=== PATIENT | female | born 1945 | race Two or more races ===

== ENCOUNTER → 2018-06-29 | Outpatient (CLI) | payer MEDICARE ==
[2018-06-29 11:38] LABS: BASO % 0.3 % (0.0-1.0); EOS # 0.1 10^3/uL (0.0-0.50); EOS % 0.8 % (0.0-3.0); HEMATOCRIT 33.4 % (36.0-47.0); HEMOGLOBIN 10.6 g/dl (12.0-15.5); LYMPH % 15.5 % (24.0-44.0); MEAN CORPUSCULAR HEMOGLOBIN 25.1 pg (27.0-33.0); MEAN CORPUSCULAR HGB CONC 31.7 g/dl (32.0-36.5); MONO # 0.7 10^3/uL (0.0-0.8); MONO % 10.8 % (0.0-5.0); NEUTROPHILS # 4.6 10^3/uL (1.8-7.7); NEUTROPHILS % 72.3 % (36.0-66.0); PLATELET COUNT, AUTOMATED 273 10^3/uL (150-450); RED BLOOD COUNT 4.23 10^6/uL (4.00-5.40); WHITE BLOOD COUNT 6.4 10^3/uL (4.0-10.0)
--- NOTE | 2018-06-29 13:11 | REP ---
Lumbar spine five views: There are no comparisons. There is mild scoliosis convex left at the thoracolumbar junction. Vertebral body heights are normal. There is degenerative disc disease and L4-5 and L5 S1. There is no spondylolysis. There is degenerative grade 1 spondylolisthesis of L4. The pedicles are unremarkable. There is facet osteoarthritis, vertically at the lower lumbar levels. Sacroiliac articulations are unremarkable. There is a large calcification in the pelvis projected over the sacrum on the lateral views. Impression: Mild scoliosis. Degenerative disc disease as described. Facet osteoarthritis. Degenerative grade 1 spondylolisthesis of L4. Electronically Signed by Rakesh Webb MD 06/29/2018 01:03 P
--- NOTE | 2018-06-29 13:12 | REP ---
Left tibia-fibula two views half : There is no fracture or dislocation. Mineralization and joint spaces are normal. There are no calcifications or foreign bodies. Impression: Negative left tibia-fibula . Electronically Signed by Rakesh Webb MD 06/29/2018 01:04 P
== END ==
LOC: M WUC 09:05
PROVIDERS: ATTEND Physician Assistant
DX: M51.36 Other intervertebral disc degeneration, lumbar region (principal); M79.662 Pain in left lower leg; M43.16 Spondylolisthesis, lumbar region; M41.9 Scoliosis, unspecified

== ENCOUNTER → 2018-07-12 | Outpatient (CLI) | payer MEDICARE ==
[2018-07-12 09:44] LABS: BASO % 0.4 % (0.0-1.0); EOS % 0.5 % (0.0-3.0); LYMPH # 0.9 10^3/uL (1.5-4.5); LYMPH % 16.3 % (24.0-44.0); MEAN CORPUSCULAR HEMOGLOBIN 25.4 pg (27.0-33.0); MEAN CORPUSCULAR HGB CONC 32.4 g/dl (32.0-36.5); MEAN CORPUSCULAR VOLUME 78.5 fl (80.0-96.0); MONO # 0.4 10^3/uL (0.0-0.8); NEUTROPHILS # 4.1 10^3/uL (1.8-7.7); NEUTROPHILS % 74.6 % (36.0-66.0); PLATELET COUNT, AUTOMATED 290 10^3/uL (150-450); RED BLOOD COUNT 4.33 10^6/uL (4.00-5.40); WHITE BLOOD COUNT 5.5 10^3/uL (4.0-10.0)
[2018-07-12 10:09] LABS: ALBUMIN 3.9 GM/DL (3.2-5.2); ALT/SGPT 15 U/L (12-78); BILIRUBIN,TOTAL 0.4 MG/DL (0.2-1.0); BLOOD UREA NITROGEN 12 MG/DL (7-18); CALCIUM LEVEL 9.9 MG/DL (8.8-10.2); CARBON DIOXIDE LEVEL 25 MEQ/L (21-32); CHLORIDE LEVEL 100 MEQ/L (98-107); CREATININE FOR GFR 0.75 MG/DL (0.55-1.30); GLOMERULAR FILTRATION RATE > 60.0 (>39); GLUCOSE, FASTING 76 MG/DL (70-100); POTASSIUM SERUM 4.6 MEQ/L (3.5-5.1); SODIUM LEVEL 136 MEQ/L (136-145); TOTAL PROTEIN 6.8 GM/DL (6.4-8.2)
== END ==
LOC: M WUC 08:56
PROVIDERS: ATTEND Physician Assistant
DX: M79.662 Pain in left lower leg (principal); M54.5 Low back pain

== ENCOUNTER → 2018-11-15 | Outpatient (REF) | payer MEDICARE ==
[2018-11-15 12:31] LABS: BLOOD UREA NITROGEN 21 MG/DL (7-18); CREATININE FOR GFR 0.87 MG/DL (0.55-1.30); GLOMERULAR FILTRATION RATE > 60.0 (>39)
== END ==
LOC: M LABDRAW1 10:33
PROVIDERS: ATTEND Physician Assistant
DX: M47.817 Spondylosis without myelopathy or radiculopathy, lumbosacral region (principal)

== ENCOUNTER → 2019-05-28 | Outpatient (REF) | payer MEDICARE ==
[2019-05-28 13:39] LABS: BLOOD UREA NITROGEN 14 MG/DL (7-18); CREATININE FOR GFR 0.77 MG/DL (0.55-1.30); GLOMERULAR FILTRATION RATE > 60.0 (>39)
== END ==
LOC: M LABDRAW1 12:30
PROVIDERS: ATTEND Physician Assistant
DX: M51.35 Other intervertebral disc degeneration, thoracolumbar region (principal)

== ENCOUNTER → 2019-11-26 | Outpatient (REF) | payer MEDICARE ==
[2020-01-11 06:55] LABS: BLOOD UREA NITROGEN 18 MG/DL (7-18); CREATININE FOR GFR 0.81 MG/DL (0.55-1.30); GLOMERULAR FILTRATION RATE > 60.0 (>39)
== END ==
LOC: M PLALAB 08:30
PROVIDERS: ATTEND Physician Assistant
DX: M47.817 Spondylosis without myelopathy or radiculopathy, lumbosacral region (principal)

== ENCOUNTER → 2020-07-07 | Outpatient (REF) | payer MEDICARE ==
[2020-07-07 14:39] LABS: BLOOD UREA NITROGEN 13 MG/DL (7-18); C REACTIVE PROTEIN QUANTITATIV < 0.30 MG/DL (0.00-0.30)
== END ==
LOC: M PLALAB 13:53
PROVIDERS: ATTEND Physician Assistant
DX: M47.817 Spondylosis without myelopathy or radiculopathy, lumbosacral region (principal)

== ENCOUNTER → 2022-09-19 | Outpatient (CLI) | payer MEDICARE | LOC: M WUC 09:04 | PROVIDERS: ATTEND Student in an Organized Health Care Education/Training Program | DX: M25.532 Pain in left wrist (principal); S52.572A Other intraarticular fracture of lower end of left radius, initial encounter for closed fracture; X58.XXXA Exposure to other specified factors, initial encounter; Y92.9 Unspecified place or not applicable; Y93.9 Activity, unspecified; Y99.9 Unspecified external cause status; M19.042 Primary osteoarthritis, left hand ==

== ENCOUNTER 2023-10-17 07:46 | Observation (INO) | payer MEDICARE ==
[~2023-10-17] VITALS: Ht 165.1 cm; Wt 54.0 kg
[2023-10-17] MEDS ORDERED: TRAM1CAP16 PO (07:57)
[2023-10-17] MEDS: ONDANSETRON 4MG 2ML VIAL IV ONE (08:29)
[2023-10-17] MEDS: MORPHINE 2 MG/ML 1ML VIAL IV ONE (08:29)
[2023-10-17 08:38] LABS: BASO % 0.2 % (0.0-1.0); EOS % 0.2 % (0.0-3.0); HEMATOCRIT 39.2 % (36.0-47.0); HEMOGLOBIN 13.8 g/dl (12.0-15.5); LYMPH # 0.9 10^3/uL (1.5-5.0); MEAN CORPUSCULAR HEMOGLOBIN 30.8 pg (27.0-33.0); MEAN CORPUSCULAR HGB CONC 35.2 g/dl (32.0-36.5); MEAN CORPUSCULAR VOLUME 87.5 fl (80.0-96.0); MONO # 0.5 10^3/uL (0.0-0.8); MONO % 4.3 % (2.0-8.0); NEUTROPHILS # 9.7 10^3/uL (1.5-8.5); NEUTROPHILS % 86.9 % (36.0-66.0); PLATELET COUNT, AUTOMATED 252 10^3/uL (150-450); RED BLOOD COUNT 4.48 10^6/uL (4.00-5.40); WHITE BLOOD COUNT 11.1 10^3/uL (4.0-10.0)
[2023-10-17] MEDS: LORazepam 2 MG/ML 1ML VIAL IV STA (08:47)
[2023-10-17 09:09] LABS: AMYLASE 74 U/L (30-118)
[2023-10-17 09:12] LABS: ALKALINE PHOSPHATASE 65 U/L (46-116); ALT/SGPT 20 U/L (7.0-40); AST/SGOT 62 U/L (<34); BILIRUBIN,DIRECT 0.1 MG/DL (<0.4); BILIRUBIN,TOTAL 0.8 MG/DL (0.3-1.2); BLOOD UREA NITROGEN 14 MG/DL (9-23); CALCIUM LEVEL 9.5 MG/DL (8.3-10.6); CARBON DIOXIDE LEVEL 22 MMOL/L (20-31); CHLORIDE LEVEL 103 MMOL/L (98-107); CREATININE FOR GFR 0.56 MG/DL (0.55-1.30); GLOMERULAR FILTRATION RATE > 60.0 (>39); GLUCOSE, FASTING 165 MG/DL (74-106); LIPASE 44 U/L (12-53); POTASSIUM SERUM 5.6 MMOL/L (3.5-5.1); SODIUM LEVEL 136 MMOL/L (136-145); TOTAL PROTEIN 6.9 G/DL (5.7-8.2)
[2023-10-17] MEDS: NS 1,690 ML in IV 1 EA IV ONE (09:20)
[2023-10-17] MEDS: LIDOCAINE 2% 5ML JELLY UROJET TOP ONE (09:20)
[2023-10-17] MEDS ORDERED: ACET-683 PO (09:48)
[2023-10-17 10:28] LABS: ALKALINE PHOSPHATASE 71 U/L (46-116); ALT/SGPT 18 U/L (7.0-40); AST/SGOT 34 U/L (<34); BILIRUBIN,TOTAL 0.7 MG/DL (0.3-1.2); BLOOD UREA NITROGEN 13 MG/DL (9-23); CALCIUM LEVEL 9.1 MG/DL (8.3-10.6); CARBON DIOXIDE LEVEL 23 MMOL/L (20-31); CHLORIDE LEVEL 104 MMOL/L (98-107); GLOMERULAR FILTRATION RATE > 60.0 (>39); GLUCOSE, FASTING 158 MG/DL (74-106); POTASSIUM SERUM 4.3 MMOL/L (3.5-5.1); SODIUM LEVEL 133 MMOL/L (136-145); TOTAL PROTEIN 6.6 G/DL (5.7-8.2)
[2023-10-17] MEDS ORDERED: TRAM50TA2 PO (10:49)
[2023-10-17] MEDS ORDERED: MAGN400T2 PO (10:49)
[2023-10-17] MEDS ORDERED: CRAN500C11 PO (10:49)
[2023-10-17] MEDS ORDERED: ARTIDRO OU (10:50)
[2023-10-17] MEDS ORDERED: HOME MED LIST COMPLETE! XX SCH (10:50)
[2023-10-17] MEDS: FLEET OIL RETENTION ENEMA PR PRN (11:50)
[2023-10-17] MEDS ORDERED: BISACODYL 10MG SUPP PR PRN (14:25)
[2023-10-17 15:20] LABS: CK-MB VALUE MASS < 1.0 NG/ML (<3.6)
[2023-10-17 15:27] LABS: CPK CREATINE PHOSPHOKINASE 50 U/L (34-145)
[2023-10-17] MEDS: MORPHINE 2 MG/ML 1ML VIAL IV PRN (16:47)
[2023-10-17] MEDS: LACTULOSE 20GM/30ML SYRUP UDC PO ONE (19:52)
[2023-10-17] MEDS: HEPARIN SOD (PORCINE) 5000UNITS/ML 1ML VIAL/SYRINGE SC SCH (19:52)
[2023-10-17] MEDS: DOCUSATE SODIUM 100MG CAPSULE PO SCH (19:52)
[2023-10-17] MEDS: BISACODYL 10MG SUPP PR ONE (23:20)
[2023-10-17] MEDS: MOM 30ML SUSPENSION UDC PO ONE (23:20)
[2023-10-18 01:37] VITALS: BP 121/65; TEMP 98.6; O2SAT 99
[2023-10-18] MEDS: MOM 30ML SUSPENSION UDC PO PRN (01:59)
[2023-10-18 04:00] VITALS: BP 126/68; TEMP 98.5; O2SAT 98
[2023-10-18 06:26] LABS: ALBUMIN 3.6 G/DL (3.2-5.2); ALKALINE PHOSPHATASE 74 U/L (46-116); ALT/SGPT 15 U/L (7.0-40); AST/SGOT 19 U/L (<34); BLOOD UREA NITROGEN 16 MG/DL (9-23); CALCIUM LEVEL 9.6 MG/DL (8.3-10.6); CARBON DIOXIDE LEVEL 24 MMOL/L (20-31); CHLORIDE LEVEL 100 MMOL/L (98-107); CREATININE FOR GFR 0.58 MG/DL (0.55-1.30); GLOMERULAR FILTRATION RATE > 60.0 (>39); GLUCOSE, FASTING 143 MG/DL (74-106); POTASSIUM SERUM 3.7 MMOL/L (3.5-5.1); SODIUM LEVEL 134 MMOL/L (136-145); TOTAL PROTEIN 6.5 G/DL (5.7-8.2)
[2023-10-18 06:31] LABS: PROCALCITONIN <0.04 ng/ml
[2023-10-18 08:00] VITALS: BP 143/73; TEMP 99.6; O2SAT 98
[2023-10-18] MEDS: ACETAMINOPHEN TAB 650MG DOSE (2X325MG) PO PRN (08:03)
[2023-10-18 11:50] VITALS: BP 116/60; TEMP 99; O2SAT 97
[2023-10-18] MEDS: MAALOX 30 ML SUSP *UDC PO PRN (13:16)
[2023-10-18] MEDS: NS 1,000 ML IV SCH (15:35)
[2023-10-18 16:10] VITALS: BP 125/69; TEMP 99.3; O2SAT 100
[2023-10-18 20:00] VITALS: BP 110/61; TEMP 99; O2SAT 96
[2023-10-19 04:35] VITALS: BP 112/61; TEMP 98.9; O2SAT 97
[2023-10-19 08:00] VITALS: BP 113/59; TEMP 99; O2SAT 94
[2023-10-19 11:55] VITALS: BP 114/61; TEMP 98.8; O2SAT 99
[2023-10-19] MEDS ORDERED: MIRA33506 PO (13:57)
[2023-10-19] MEDS ORDERED: NITR-67 PO (13:57)
[2023-10-19] MEDS ORDERED: SENN1TAB96 PO (13:57)
[2023-10-19] MEDS: cefTRIAXone SOD 1 GM in D5W MINI-BAG PLUS 50 ML IV ONE (14:53)
[2023-10-19 21:00] VITALS: BP 118/70; TEMP 100.5; O2SAT 96
[2023-10-20] VITALS: BP 120/70; TEMP 98.9; O2SAT 93
[2023-10-20 03:50] VITALS: BP 112/56; TEMP 99; O2SAT 95
[2023-10-20 07:45] VITALS: BP 127/66; TEMP 98.8; O2SAT 97
[2023-10-20 09:23] LABS: BASO % 0.2 % (0.0-1.0); EOS % 0.2 % (0.0-3.0); HEMATOCRIT 34.2 % (36.0-47.0); HEMOGLOBIN 11.3 g/dl (12.0-15.5); LYMPH # 0.7 10^3/uL (1.5-5.0); LYMPH % 7.4 % (24.0-44.0); MEAN CORPUSCULAR HEMOGLOBIN 30.1 pg (27.0-33.0); MONO # 0.7 10^3/uL (0.0-0.8); MONO % 7.9 % (2.0-8.0); NEUTROPHILS # 7.7 10^3/uL (1.5-8.5); NEUTROPHILS % 83.9 % (36.0-66.0); PLATELET COUNT, AUTOMATED 190 10^3/uL (150-450); RED BLOOD COUNT 3.76 10^6/uL (4.00-5.40); WHITE BLOOD COUNT 9.2 10^3/uL (4.0-10.0)
[2023-10-20 09:54] LABS: ALBUMIN 2.7 G/DL (3.2-5.2); ALKALINE PHOSPHATASE 55 U/L (46-116); ALT/SGPT 13 U/L (7.0-40); AST/SGOT 17 U/L (<34); BILIRUBIN,TOTAL 0.6 MG/DL (0.3-1.2); BLOOD UREA NITROGEN 10 MG/DL (9-23); CALCIUM LEVEL 8.7 MG/DL (8.3-10.6); CARBON DIOXIDE LEVEL 29 MMOL/L (20-31); CHLORIDE LEVEL 108 MMOL/L (98-107); CREATININE FOR GFR 0.49 MG/DL (0.55-1.30); GLOMERULAR FILTRATION RATE > 60.0 (>39); GLUCOSE, FASTING 121 MG/DL (74-106); MAGNESIUM LEVEL 1.9 MG/DL (1.8-2.4); PHOSPHORUS LEVEL 2.6 MG/DL (2.4-5.1); POTASSIUM SERUM 3.5 MMOL/L (3.5-5.1); SODIUM LEVEL 140 MMOL/L (136-145); TOTAL PROTEIN 5.2 G/DL (5.7-8.2)
== END 2023-10-20 12:15 | disposition home or self-care (01) ==
LOC: M ED 07:46 → M ED INP 13:42 → M MSPAV 10-18 01:30
PROVIDERS: ADMIT Internal Medicine; ATTEND Hospitalist
DX: R10.9 Unspecified abdominal pain (principal); K59.00 Constipation, unspecified; E87.29 Other acidosis; M06.9 Rheumatoid arthritis, unspecified; E78.5 Hyperlipidemia, unspecified; Z79.899 Other long term (current) drug therapy
CPT/HCPCS: 36415; 51701; 51702; 74021; 74176; 80047; 80048; 80053; 80076; 81001; 82150; 82550; 82553; 83605; 83690; 83735; 84100; 84145; 84484; 85025; 87040; 87088; 87186; 87486; 87581; 87633; 87798; 87880; 93005; 93041; 96361; 96365; 96372; 96375; 96376; 99285; G0378; J0696; J2060; J2405